=== PATIENT | male | born 1950 | race Caucasian/White ===

== ENCOUNTER 2020-05-05 09:18 | Outpatient (CLI) | payer MEDICARE, SELFPAY ==
--- NOTE | ~2020-05-05 | CT_ITS ---
EXAMINATION: CT abdomen pelvis w con DATE: 05/05/2020 10:02 INDICATION: Prostate cancer TECHNIQUE: Computed tomography (CT) of the abdomen and pelvis was performed with 100 mL Omnipaque-350 intravenous contrast. Automated exposure control and iterative reconstruction technique were employe d. The dose-length product was 845.09 mGy-cm. COMPARISON: CT dated 04/19/2018 and MRI dated 05/01/2018 FINDINGS: Pneumatocele in the left lower lobe. Heart size is normal. Atherosclerotic coronary artery calcified calcification. No pericardial or pleural effusion. No significant interval change in 5 subtle poorly defined 1-2 cm enhancing lesions throughout the liver with no evident correlate on intervening pain p ost contrast MRI or PET/CT most likely representing transient hyperattenuation difference. Gallblad[place] r, spleen, pancreas and bilateral adrenal glands are normal. There are a few lateral low-attenuation renal cysts the largest measuring 4.8 cm peripheral the right kidney and the largest on the left brian uring 5 mm. There is an additional 1.4 cm lesion at the lower pole of the right kidney which demonstr ates greater than simple fluid attenuation Proteinaceous/hemorrhagic cyst. Severe right hydroureteron ephrosis resulting from at least partially obstructing 5 mm stone at the right ureterovesicular junct ion but without a delayed right nephrogram. Bladder is normal. Likely brachytherapy seeds at the pros mckeon. There are few scattered colonic diverticula without adjacent inflammatory change to suggest div erticulitis. Small bowel and appendix are normal. No free intraperitoneal gas or fluid. No pathologic ally enlarged abdominal or pelvic lymphadenopathy. Mild lumbar dextroscoliosis with severe spondylosi s. No suspicious lytic or blastic bone lesions. IMPRESSION: 1. Severe right hydroureteronephrosis secondary to 5 mm at least partially obstructing distal right ureteral stone but without delayed nephrogram. 2. No evident metastatic disease. Reviewed, dictated and finalized at location A. IMPRESSION: 1. Severe right hydroureteronephrosis secondary to 5 mm at least partially obs tructing distal right ureteral stone but without delayed nephrogram. 2. No evident metastatic disease.
--- NOTE | ~2020-05-05 | NM_ITS ---
EXAMINATION: NM bone scan whole body DATE: 05/05/2020 13:05 INDICATION: Prostate cancer TECHNIQUE: 22.9 mCi Tc-99m HDP was administered intravenously. Delayed whole-body scintigrams were o btained. COMPARISON: CT dated 05/05/2020 FINDINGS: There is prominent right hydroureteronephrosis which on CT appears to result from an obstructing 5 mm stone at the right ureterovesicular junction. No suspicious foci of abnormal bone uptake. Mild thora columbar levoscoliosis. IMPRESSION: 1. No evident metastatic disease. 2. Right hydroureteronephrosis with obstructing 5 mm stone at the left ureterovesicular junction on i mmediately prior CT. Reviewed, dictated and finalized at location A. IMPRESSION: 1. No evident metastatic disease. 2. Right hydroureteronephrosis with obstructing 5 mm stone at the left ureterov esicular junction on immediately prior CT.
[2020-05-05 09:56] LABS: Estimated Glomerular Filt Rate > 60
== END 2020-05-05 09:19 | disposition home or self-care (01) ==
LOC: ANHIMG 09:29
PROVIDERS: PCP Physician Assistant Medical; Visit Provider Urology
DX: C61 Malignant neoplasm of prostate (principal); N13.2 Hydronephrosis with renal and ureteral calculous obstruction
CPT/HCPCS: 74177; 78306; A9561; Q9967

== ENCOUNTER 2020-05-12 10:57 | Outpatient (CLI) | payer MEDICARE, SELFPAY ==
--- NOTE | ~2020-05-12 | XR_ITS ---
XR abdomen/kub 1V 05/12/2020 11:26 Indication: Right ureteral stone Procedure: KUB Comparison: CT dated 05/05/2020 Findings: 5 mm distal right ureteral stone without significant change to position. Bowel gas pattern nonobstructive. Moderate colonic fecal loading. Moderate spondylosis of the lumbar spine with dextroc urvature. Impression: 1: Stable position to 5 mm distal right ureteral stone. Reviewed, dictated and finalized at location A. Impression: 1: Stable position to 5 mm distal right ureteral stone.
== END 2020-05-12 10:58 | disposition home or self-care (01) ==
PROVIDERS: PCP Physician Assistant Medical; Visit Provider Urology
DX: N20.1 Calculus of ureter (principal)
CPT/HCPCS: 74018

== ENCOUNTER 2020-05-23 10:03 | Outpatient (CLI) | payer MEDICARE, SELFPAY ==
--- NOTE | 2020-05-23 10:07 | ECG_ITS ---
Measurements Intervals [place] Rate: 82 P: 58 MS: 162 QRS: 55 QRSD: 83 T: 31 QT: 351 QTc: 412 Interpretive Statements SINUS RHYTHM NORMAL ECG Electronically Signed On 05-23-2020 10:35:39 CDT by Luis Armando Eng D.O.
== END 2020-05-23 10:04 | disposition home or self-care (01) ==
LOC: ANHSURGERY 10:07
PROVIDERS: PCP Physician Assistant Medical; Visit Provider Urology
DX: N20.0 Calculus of kidney (principal); Z87.891 Personal history of nicotine dependence
CPT/HCPCS: 87086; 93005

== ENCOUNTER 2020-05-24 01:15 | Outpatient (CLI) | payer MEDICARE, SELFPAY ==
[2020-05-26 18:12] LABS: SARS-CoV-2 RNA PCR Negative
== END 2020-05-24 01:16 | disposition home or self-care (01) ==
LOC: ANHCOVIDDT 01:16
PROVIDERS: PCP Physician Assistant Medical; Visit Provider Urology
DX: Z01.812 Encounter for preprocedural laboratory examination (principal); Z20.828 Contact with and (suspected) exposure to other viral communicable diseases
CPT/HCPCS: 87635; C9803; U0003

== ENCOUNTER 2020-05-27 00:32 | Day surgery (SDC) | payer MEDICARE, SELFPAY ==
[2020-05-21 08:52] VITALS: BMI 28.3
--- NOTE | ~2020-05-27 | XR_ITS ---
EXAMINATION: XR retrograde pyelogram RT INDICATION: Right ureteral stone TECHNIQUE: Seven intraoperative fluoroscopic images are submitted for review. Total fluoroscopic time is 24.6 seconds. The DAP is 0.90316 mGym2. COMPARISON: None available FINDINGS: Fluoroscopic images demonstrate retrograde opacification of the mildly dilated right ureter . Final images demonstrate a right internal ureteral stent in expected position. Please refer to surg ical note for full details. IMPRESSION: 1. Mild right hydroureter with placement of an internal ureteral stent in expected position. Please r efer to surgical note for full details. Reviewed, dictated and finalized at location A. IMPRESSION: 1. Mild right hydroureter with placement of an internal ureteral stent in expec dolores position. Please refer to surgical note for full details.
--- NOTE | 2020-05-27 08:20 | WPDANESEPPF ---
Anes - Initial Pre Proc Eval Procedure: Operation Date: 05/27/20 14:00 Proposed Procedures p Cystoscopy, Right Ureteroscopy, Right Retrograde Pyelogram, Right Stone Extraction, Possible Right Stent Placement, - Bill Marsh MD s Possible Holmium Laser Procedure - Bill Marsh MD Date/Time: 05/27/20 08:20 Surgeon: Bill Marsh MD Pre Op Diagnosis: right renal stone Patient Data Age: 69 Gender: M Height: 1.88 m Weight: 100 kg Allergies Allergy/AdvReac Type Severity Reaction Status Date / Time soybean AdvReac Gastrointestinal Verified 05/27/20 12:33 Upset EGG WHITES AdvReac Gastrointestinal Uncoded 05/27/20 12:33 Upset Home Medications Medication Instructions Recorded Confirmed Type krgep-t-tlvgslecqltxp [Beano] 150 unit PO TID PRN 05/21/20 05/27/20 History ascorbic acid (vitamin C) [Vitamin 1 g PO DAILY 05/21/20 05/27/20 History C] cholecalciferol (vitamin D3) 25 mcg PO DAILY 05/21/20 05/27/20 History cyanocobalamin (vitamin B-12) 1,000 mcg PO DAILY 05/21/20 05/27/20 History zclelgdqfckb-cwbehbma-fllpsd 1 tablet PO DAILY 05/21/20 05/27/20 History [Multivitamin 50 Plus] omega 4-rlr-rrm-fish oil [Fish Oil] 1 cap PO DAILY 05/21/20 05/27/20 History tamsulosin 0.4 mg PO DAILY 05/21/20 05/27/20 History vit B1 [id number]-C-FA [B 1 tablet PO DAILY 05/21/20 05/27/20 History Complex w-Vit C] Patient hx anesthesia problems: none Family hx anesthesia problems: none PMFSH Past Medical History Medical History (Updated 05/27/20 @ 08:20 by Pierre Lind DO) Diabetes type 2, controlled diet controlled History of hepatitis History of prostate cancer Social History Social History Tobacco type: cigarettes Additional smoking assessment comments: 1/2PK/DAY/50+ YRS Alcohol intake: never Substance use: never Living arrangements: alone Spiritual care concerns: No Anes - Eval Final PreProcedure Day of Procedure 05/27/20 08:20 Patient weight: overweight Heart: regular rate and rhythm Lungs: clear to auscultation and normal air movement Airway: Mallampati scale class II Neurological: alert and oriented Last oral intake: >/= 8 hours ASA classification: III Emergent: no Anesthetic plan: proceed Anesthesia type and monitoring: general LMA and standard monitoring Informed Consent: The patient's anesthetic plan and its attendant risks and benefits were discussed with the patient/family/POA. Questions were solicited and answers provided to the satisfaction of the patient/family/POA.
[2020-05-27] MEDS: LACTATED RINGERS 1,000 ML 30 ML IV CONT (12:06)
[2020-05-27 12:37] VITALS: BP 138/74; PULSE 82; RESP 20; TEMP 36.4; O2SAT 99
--- NOTE | 2020-05-27 14:01 | WPDHPUPDATE1 ---
History and Physical Update Update Date/Time: 05/27/20 14:01 History and Physical has been reviewed, including an updated exam of the patient. There are NO changes in the patient's condition. Risks, benefits, and alternatives have been discussed and questions answered. Patient agrees to proceed with procedure.
[2020-05-27] MEDS: ceFAZolin 2 GM/D5W 50 ML 2 GM/50 ML BAG IVPB (15:08)
[2020-05-27] MEDS: LIDOCAINE HCL 2% GEL UROJET 10 ML PKG MUCOUS MEM (15:41)
--- NOTE | 2020-05-27 15:44 | PM.PROC ---
Procedure Note - Detailed Date of procedure: 05/27/20 Pre-op diagnosis: right renal stone Right ureteral calculus 7 mm Post-op diagnosis: same Procedure performed: Cystoscopy, right retrograde pyelogram, right ureteroscopy with holmium laser, stone extraction, right ureteral stent placement 4.8 Beninese contour Description of procedure: Patient is taken to the operative suite and correctly identified. Once anesthesia was obtained he was placed in the dorsal lithotomy position and prepped and draped usual sterile fashion. Twenty-two Beninese scope was inserted in the bladder. There is no tumors noted. Right ureteral orifice was cannulated with a guidewire. An 8/10 dilator was used to dilate the orifice. Rigid ureteral scope was inserted into the orifice. The stone was too large to retrieve in 1 piece. Using a 273 micron fiber the stone was lasered into multiple pieces. These were retrieved were sent for analysis. Reinspection revealed no residual stones. Pyelogram was then performed to confirm placement of the stent. A 4.8 Beninese contour stent was then placed with the proximal end coiled in the renal pelvis and the distal in the bladder. 2% viscous lidocaine was inserted urethra patient is taken recovery room stable condition. He will follow up in a week's time for stent removal. Anesthesia: GLMA Surgeon: Bill Marsh MD Drains: Yes Packing: No Pathology: yes Complications: No immediate complications Condition: stable Disposition: PACU
[2020-05-27 15:50] VITALS: BP 121/73; PULSE 74; RESP 9; TEMP 36.2; O2SAT 100
[2020-05-27 16:05] VITALS: BP 112/62; PULSE 74; RESP 14; O2SAT 100
[2020-05-27 16:20] VITALS: BP 120/72; PULSE 70; RESP 17; O2SAT 97
[2020-05-27 16:35] VITALS: BP 115/61; PULSE 71; RESP 16
[2020-05-27 17:03] VITALS: BP 133/77; PULSE 75; RESP 20
== END 2020-05-27 17:30 | disposition home or self-care (01) ==
PROVIDERS: PCP Physician Assistant Medical; Visit Provider Urology
PROC: (CPT 52352; principal; 2020-05-27 14:00)
PROC: (CPT 52356; 2020-05-27 14:00)
DX: N13.2 Hydronephrosis with renal and ureteral calculous obstruction (principal); E11.9 Type 2 diabetes mellitus without complications; Z86.19 Personal history of other infectious and parasitic diseases; Z85.46 Personal history of malignant neoplasm of prostate; F17.210 Nicotine dependence, cigarettes, uncomplicated
CPT/HCPCS: 52356; 74420; 82365; 88300; A9270; C1769; C2617; J0690; J1100; J2250; J2405; J2704; J3010; J7120; Q9966

== ENCOUNTER 2021-12-25 08:52 | Outpatient (CLI) | payer MEDICARE, SELFPAY ==
--- NOTE | ~2021-12-25 | CT_ITS ---
EXAMINATION: CT diagnostic chest w con DATE: 12/25/2021 09:29 INDICATION: Lung mass, history of prostate cancer TECHNIQUE: Transaxial computed tomographic images of the chest were obtained after the administration of 75 cc of Omnipaque 350 intravenous contrast. The dose-length product (DLP) was 257.91 mGy-cm. Ite rative reconstruction was used. COMPARISON: 05/16/2018 FINDINGS: There is mild emphysema. There is a 4.2 x 3.0 cm mass in the right upper lobe. The lungs ar e free of acute opacities. There is no pleural effusion or pneumothorax. No pathologically enlarged t horacic lymph nodes are identified. The heart size is normal. There is mild bilateral gynecomastia. C alcified coronary artery atherosclerosis is noted. There are subtle enhancing masses of the right hep atic lobe which measure up to 2.7 cm. There is moderate to severe partially imaged left hydronephrosi s. There is a 4.1 cm cyst of the right kidney. IMPRESSION: 1. 4.2 cm right upper lobe mass, consistent with primary bronchogenic carcinoma. 2. Subtle enhancing masses of the liver, likely metastatic disease. 3. Mild emphysema. Reviewed, dictated and finalized at location B. IMPRESSION: 1. 4.2 cm right upper lobe mass, consistent with primary bronchogenic carcinoma . 2. Subtle enhancing masses of the liver, likely metastatic disease. 3. Mild emphysema.
--- NOTE | ~2021-12-25 | NM_ITS ---
EXAMINATION: ASHLEY jiménez renal scan DATE: 12/25/2021 10:53 INDICATION: Left hydronephrosis TECHNIQUE: 8.4 mCi Tc-99m MAG3 was administered IV. 40 mg furosemide was administered IV immediately afterward. The patient was scanned in the supine position. A posterior abdominal radionuclide angiog meryl was obtained. A subsequent time course of static images of the kidneys, ureters, and bladder was obtained. COMPARISON: CT chest dated 12/25/2021 at 9:19 AM FINDINGS: The posterior abdominal radionuclide angiogram and sequential static images show normal size, positio n, and morphology of the kidneys. Peak renal parenchymal uptake was 5.5 min in right kidney and indet erminate in the left kidney with essentially no uptake in the left kidney beyond the first passage of the activity bolus (normal peak 3-5 minutes). The relative early renal uptake was 17% on the left a nd 83% on the right (<40% is abnormal). No abnormalities of the ureters or bladder are seen. T1/2 for clearance of activity from the right kidney and proximal collecting system was >25 minutes. T1/2 for clearance of activity from the left kidney and proximal collecting system is indeterminate d ue to the markedly poor activity uptake by the kidney with no discernible excreted activity. Notes on interpretation: T1/2 <10 minutes is normal, 10-15 minutes is low grade obstruction of questi onable clinical significance, 15-20 minutes is partial obstruction that is likely clinically signific ant, >20 minutes is high grade obstruction. Note that false positives may be seen with supine positio cleo, dehydration, severely dilated nonobstructed kidney, atonic collecting system, poor renal functi on, and chronic furosemide use. IMPRESSION: 1. Significant delayed activity clearance from the right kidney of >25 minutes which could be consis tent with a high-grade obstruction with additional differential as detailed above. There does not krupa ear to be significant hydronephrosis in the right kidney on the CT performed immediately prior to the current scintigraphic study which suggests this is likely due to poor renal function. This could pot entially be transient nephropathy related to the immediately prior contrast bolus. Correlate with fol low-up serum creatinine levels to assess for ongoing renal function. 2. Markedly asymmetric decreased left renal activity with essentially no uptake beyond the level of t he first passage of the extruded bolus with left kidney contributing only 17% to total early renal up take and with no evident accumulation of excreted activity at the left renal pelvis. This could be du e to high-grade obstruction although there could also be contribution due to nonspecific nephropathy of similar etiology as in the contralateral right kidney. Reviewed, dictated and finalized at location A. IMPRESSION: 1. Significant delayed activity clearance from the right kidney of >25 minutes which could be consistent with a high-grade obstruction with additional differ ential as detailed above. There does not appear to be significant hydronephrosi s in the right kidney on the CT performed immediately prior to the current scin tigraphic study which suggests this is likely due to poor renal function. This could potentially be transient nephropathy related to the immediately prior con trast bolus. Correlate with follow-up serum creatinine levels to assess for ben oing renal function. 2. Markedly asymmetric decreased left renal activity with essentially no uptake beyond the level of the first passage of the extruded bolus with left kidney c ontributing only 17% to total early renal uptake and with no evident accumulati on of excreted activity at the left renal pelvis. This could be due to high-gra de obstruction although there could
[2021-12-25 09:19] LABS: Estimated Glomerular Filt Rate 46
== END 2021-12-25 08:53 | disposition home or self-care (01) ==
PROVIDERS: PCP Physician Assistant Medical; Visit Provider Urology
DX: R91.8 Other nonspecific abnormal finding of lung field (principal); R16.0 Hepatomegaly, not elsewhere classified; J43.9 Emphysema, unspecified; R93.422 Abnormal radiologic findings on diagnostic imaging of left kidney; R93.421 Abnormal radiologic findings on diagnostic imaging of right kidney
CPT/HCPCS: 71260; 78708; A9562; J1940; Q9967

== ENCOUNTER 2022-01-06 11:25 | Outpatient (CLI) | payer MEDICARE, SELFPAY ==
--- NOTE | 2022-01-06 11:32 | ECG_ITS ---
Measurements Intervals [place] Rate: 74 P: 68 FL: 154 QRS: 70 QRSD: 86 T: 58 QT: 361 QTc: 402 Interpretive Statements SINUS RHYTHM BASELINE ARTIFACT- I, II, III, AVR, AVL, AVF NORMAL ECG Electronically Signed On 01-06-2022 12:09:40 CDT by Luis Armando Eng D.O.
[2022-01-06 12:18] LABS: Anion Gap 7 mmol/L (8-16); Blood Urea Nitrogen 43 mg/dL (9-20); Carbon Dioxide 30 mmol/L (22-30); Chloride 99 mmol/L (98-107); Estimated Glomerular Filt Rate 43; Glucose 98 mg/dL (65-110); Sodium 136 mmol/L (137-145)
[2022-01-06 12:20] LABS: INR 1.1; Partial Thromboplastin Time 33.1 SECONDS (22.3-36.8); Prothrombin Time 13.5 Seconds (11.1-14.7)
== END 2022-01-06 11:26 | disposition home or self-care (01) ==
PROVIDERS: Anesthesiology; PCP Physician Assistant Medical; Visit Provider Urology
DX: Z01.818 Encounter for other preprocedural examination (principal); F17.210 Nicotine dependence, cigarettes, uncomplicated; N28.9 Disorder of kidney and ureter, unspecified; Z51.81 Encounter for therapeutic drug level monitoring; Z79.899 Other long term (current) drug therapy
CPT/HCPCS: 36415; 80048; 85610; 85730; 87086; 87147; 87181; 87186; 93005

== ENCOUNTER 2022-01-12 00:03 | Day surgery (SDC) | payer MEDICARE, SELFPAY ==
[2022-01-05 14:36] VITALS: BMI 23.3
--- NOTE | 2022-01-05 15:18 | PC.NURSE ---
Report to the Outpatient Waiting Room, entrance under the green pavilion located off [facility], at time __7:30AM on date __01/12/22 . OR Time: __9:30AM . - You and your visitor will be asked a series of questions to screen for COVID 19 for your protection. - Only one visitor is allowed at this time. - The patient visitor is requested to leave or wait in car when not with patient. - A mask is required within the hospital. Patients may have clear liquids (water, carbonated beverages, clear teas, apple juice) until 3 hours prior to surgery with a maximum of 20 ounces. - No food from midnight until time of surgery - Infants may have breast milk until 4 hours before surgery, formula 6 hours prior to surgery. - Children will be allowed to drink immediately following surgery. If applicable, please bring a bottle or sippy cup to assist with drinking. Juice, water, soda, and popsicles are readily available. For infants on formula, please bring formula the day of surgery. Pacifiers are allowed. Take the following medications with a SIP of water the morning of surgery: NONE Medications to discontinue per physician _HOLD ALL VITAMINS/SUPPLEMENTS 3 DAYS PRE-OP Date to take last dose____01/08/22 Please no make-up, nail belgian, hairspray, perfume, deodorant, or body powder the day of surgery. No jewelry (including any body piercings) or valuables the day of surgery, leave them at home. Please take a shower or bath the night before, or the morning of, surgery with an antibacterial soap. Wear comfortable, loose fitting clothing. Children are encouraged to wear pajamas. - Jewelry must be removed prior to entering the operating room. Rings and piercings that are not removed may be cut off. - The hospital will not accept responsibility for valuables. - Please leave all valuables, including medications, at home the day of surgery. If you are going home after surgery, a licensed otr truck driver must drive you home. - NO public transportation without another adult. - We recommend that an adult stay with you for 24 hours following discharge. - We also recommend that you do not drive, make important decision, drink alcoholic beverages, or take any drugs that were not prescribed by your health care provider for at least 24 hours after your discharge time. For Pediatric surgeries, we recommend two adults accompany the child home (only one inside the building at this time). Follow any additional instructions given to you from your surgeon. If you or anyone in your household have experienced Covid symptoms in the past week, please notify your surgeon or the nurse liaison at the phone number below for possible testing. Telephone instructions given to ___PATIENT and asked if any additional questions and then verbalized understanding. Patient advised to call surgeon office or pre surgery nurse liaison [phone] if any additional questions.
[2022-01-12] VITALS (7 sets, daily range): BP systolic 94–128; BP diastolic 55–76; PULSE 72–86; RESP 12–18; TEMP 36.2–36.6; O2SAT 98–100
--- NOTE | ~2022-01-12 | XR_ITS ---
EXAMINATION: XR retrograde pyelo w/stent LT DATE: 01/12/2022 11:40 INDICATION: Prostate cancer TECHNIQUE: 9 fluoroscopic images of the abdomen and pelvis were obtained during procedure performed b monica Marsh. Radiologist was not present for the imaging or procedure. The amount of fluoroscopy t florentino used during this procedure was 0.5 minutes. COMPARISON: 05/05/2020 FINDINGS: Bereavement Program Coordinator image demonstrates normal bowel gas pattern, mild lumbar dextrocurvature with severe spondylosi s. Subsequent images demonstrate cannulation and retrograde contrast injections into the left ureter. There is severe left hydronephrosis and proximal left hydroureter with transition point in the mid l eft ureter. No evident lucent filling defect to suggest obstructing stone or urothelial irregularity. Final images demonstrate placement of a left internal ureteral stent with loops formed at the left r enal pelvis and in the bladder. IMPRESSION: 1. Severe left hydronephrosis with transition point at the proximal to mid left ureter without eviden t obstructing stone or urothelial irregularity to suggest malignant stricture in this could be relate d to extrinsic compression such as in the setting of left retroperitoneal lymphadenopathy. 2. Left internal ureteral stent placement which is in expected position. Reviewed, dictated and finalized at location B. IMPRESSION: 1. Severe left hydronephrosis with transition point at the proximal to mid left ureter without evident obstructing stone or urothelial irregularity to suggest malignant stricture in this could be related to extrinsic compression such as in the setting of left retroperitoneal lymphadenopathy. 2. Left internal ureteral stent placement which is in expected position.
--- NOTE | 2022-01-12 07:41 | WPDANESEPPF ---
Anes - Initial Pre Proc Eval Procedure: Operation Date: 01/12/22 09:30 Proposed Procedures p Cystoscopy, Left Retrograde Pyelogram, Left Ureteral Stent Placement, Possible Ureteroscopy - Bill Marsh MD Date/Time: 01/12/22 07:41 Surgeon: Bill Marsh MD Pre Op Diagnosis: Prostate Ca Patient Data Age: 71 Gender: M Height: 1.83 m Weight: 80 kg Allergies Allergy/AdvReac Type Severity Reaction Status Date / Time soybean AdvReac Mild Gastrointestinal Verified 01/12/22 07:28 Upset EGG WHITES AdvReac Mild Gastrointestinal Uncoded 01/12/22 07:28 Upset Home Medications Medication Instructions Recorded Confirmed Type ascorbic acid (vitamin C) 1,000 mg 1 g PO DAILY 05/21/20 01/12/22 History tablet (Vitamin C) cholecalciferol (vitamin D3) 25 25 mcg PO DAILY 05/21/20 01/12/22 History mcg (1,000 unit) tablet cyanocobalamin (vitamin B-12) 1,000 mcg PO DAILY 05/21/20 01/12/22 History 1,000 mcg capsule [id number] 1 tablet PO DAILY 05/21/20 01/12/22 History 18 mg-10 mg-45 mg-5 mg-250 mg tablet (B Complex w-Vit C) enzalutamide 40 mg capsule (Xtandi) 160 mg PO DAILY 01/05/22 01/12/22 History omega-3 fatty acids-vitamin E 1 cap PO DAILY 01/05/22 01/12/22 History 1,000 mg capsule zinc 50 mg tablet 50 mg PO DAILY 01/05/22 01/12/22 History nitrofurantoin 100 mg PO DAILY 01/12/22 01/12/22 History monohydrate/macrocrystals 100 mg capsule Patient hx anesthesia problems: none Family hx anesthesia problems: none Results Review: All pre-operative results and documents have been reviewed as part of the pre-operative evaluation. [facility] Past Medical History Medical History (Updated 01/12/22 @ 07:42 by Pierre Lind DO) COPD (chronic obstructive pulmonary disease) Diabetes type 2, controlled diet controlled History of hepatitis History of prostate cancer Renal dysfunction partially functioning left kidney Social History Social History Smoking packs per day: 2 Smoking cigarettes per day: 40.0 Years smoked: 51 Smoking pack-years: 102.00 Smoking status: Current every day smoker Tobacco type: cigarettes Additional smoking assessment comments: 1/2 PACK/DAY CURRENTLY Alcohol intake: never Alcohol use 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: 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 [employer]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 Informed Consent: The patient's anesthetic plan and its attendant risks and benefits were discussed with the patient/family/POA. Questions were solicited and answers provided to the satisfaction of the patient/family/POA.
[2022-01-12] MEDS: LACTATED RINGERS 1,000 ML 30 ML IV CONT (07:48)
--- NOTE | 2022-01-12 08:27 | WPDHPUPDATE1 ---
History and Physical Update Update Date/Time: 01/12/22 08:27 History and Physical has been reviewed, including an updated exam of the patient. There are NO changes in the patient's condition. Risks, benefits, and alternatives have been discussed and questions answered. Patient agrees to proceed with procedure. Proceed with cystoscopy, left retrograde pyelogram, left stent placement, possible ureteroscopy
--- NOTE | 2022-01-12 09:53 | SUR.PREOP ---
pt informed delay in procedure.
[2022-01-12] MEDS: ceFAZolin 2 GM/D5W 50 ML 2 GM/50 ML BAG IVPB (11:08)
[2022-01-12] MEDS: LIDOCAINE HCL 2% GEL UROJET 10 ML PKG MUCOUS MEM (11:34)
[2022-01-12] MEDS: BACITRACIN OINTMENT 15 GM TUBE 1 APPLIC TOPICAL (11:37)
--- NOTE | 2022-01-12 11:40 | W.PM.PROC2 ---
Procedure Note - Detailed Date of Procedure 01/12/22 Pre-op Diagnosis Prostate Ca, left hydronephrosis Post-op Diagnosis Same Procedure Performed Cystoscopy, left retrograde pyelogram, left ureteral stent placement 6 Macedonian contour stent Surgeon Bill Marsh MD Anesthesia General Findings Tortuous proximal ureter with extrinsic compression Description of Procedure Patient is taken to the operative suite correctly identified. Once anesthesia was obtained was placed in dorsal lithotomy position and prepped and draped usual sterile fashion. Nineteen Macedonian scope inserted the bladder direct vision. There was no tumors noted. Left ureteral orifice was cannulated with a guidewire. It met resistance in the proximal ureter. We thus inserted a [place] over the wire and did a pyelogram. Contrast made its way into the kidney but the apparently was tortuous more proximally. We were able to manipulate an angled guidewire up into the kidney. We then advanced the [place] catheter in the renal pelvis which straightened out the ureter. A 6 Macedonian contour stent was then placed with the proximal end coiled in the renal pelvis and the distal in the bladder. 2% viscous lidocaine was inserted urethra. Was also then noted that his foreskin was adhered to his glans with some exudate catheter underneath. Using a hemostat we then gently the foreskin from the glans. We removed all the exudate. Antibiotic ointment was then placed on the foreskin. Patient is taken recovery stable condition. He will be discharged home. Will plan on stent exchange with possible ureteroscopy in 3 months time. Drains Yes Packing No Pathology None sent Complications No immediate complications Condition Stable Disposition PACU
--- NOTE | 2022-01-13 07:36 | WPDANESPN ---
Anes - Prog Note Post-Op Date/Time: 01/13/22 07:36 Cardiovascular status: normal Respiratory status: normal Airway patency: baseline Mental status: baseline Post-Op hydration status: normal Vital Signs: Last Vital Signs Temp 98 F 01/12/22 11:50 Pulse 79 01/12/22 13:15 Resp 16 01/12/22 13:15 BP 115/56 L 01/12/22 13:15 Pulse Ox 98 01/12/22 12:20 O2 Del Method Room Air 01/12/22 13:15 O2 Flow Rate 8 01/12/22 11:50 Pain Score (VAS): 08/31 I/O: Intake & Output 01/12/22 01/12/22 01/13/22 15:59 23:59 07:59 Intake Total 1050 Output Total 350 Balance 700 Patient Feedback: Patient satisfied with anesthetic care.
== END 2022-01-12 13:34 | disposition home or self-care (01) ==
PROVIDERS: PCP Physician Assistant Medical; Visit Provider Urology
PROC: (CPT 52352; principal; 2022-01-12 09:30)
DX: N13.30 Unspecified hydronephrosis (principal); N28.9 Disorder of kidney and ureter, unspecified; Z85.46 Personal history of malignant neoplasm of prostate; J44.9 Chronic obstructive pulmonary disease, unspecified; E11.9 Type 2 diabetes mellitus without complications; Z86.19 Personal history of other infectious and parasitic diseases; F17.210 Nicotine dependence, cigarettes, uncomplicated
CPT/HCPCS: 52332; 36415; 74420; 80048; 85610; 85730; 87086; 87147; 87181; 87186; 93005; A9270; C1758; C1769; C2617; J0690; J1100; J2370; J2405; J2704; J3010; J7120; Q9966

== ENCOUNTER 2022-04-01 09:18 | Outpatient (CLI) | payer MEDICARE, SELFPAY | END 2022-04-01 09:19 | disposition home or self-care (01) | LOC: ANHSURGERY 09:21 | PROVIDERS: PCP Physician Assistant Medical; Visit Provider Urology | DX: Z01.818 Encounter for other preprocedural examination (principal); N13.30 Unspecified hydronephrosis | CPT/HCPCS: 87086 ==

== ENCOUNTER 2022-04-06 00:18 | Day surgery (SDC) | payer MEDICARE, SELFPAY ==
--- NOTE | 2022-03-31 15:38 | PC.NURSE ---
Report to the Outpatient Waiting Room, entrance under the green pavilion located off [facility], at time _1130 on date __04/06/22 . OR Time: ___1330 . - You and your visitor will be asked a series of questions to screen for COVID 19 for your protection. - Only one visitor is allowed at this time. - The patient visitor is requested to leave or wait in car when not with patient. - A mask is required within the hospital. Patients may have clear liquids (water, carbonated beverages, clear teas, apple juice) until 3 hours prior to surgery with a maximum of 20 ounces. - No food from midnight until time of surgery - Infants may have breast milk until 4 hours before surgery, infant formula 6 hours prior to surgery. - Children will be allowed to drink immediately following surgery. If applicable, please bring a bottle or sippy cup to assist with drinking. Juice, water, soda, and popsicles are readily available. For infants on formula, please bring formula the day of surgery. Pacifiers are allowed. Take the following medications with a SIP of water the morning of surgery: TRELEGY INHALER Medications to discontinue per physician ALL VITAMINS AND SUPPLEMENTS 3 DAY Date to take last dose_04/02/22 Please no make-up, nail hungarian, hairspray, perfume, deodorant, or body powder the day of surgery. No jewelry (including any body piercings) or valuables the day of surgery, leave them at home. Please take a shower or bath the night before, or the morning of, surgery with an antibacterial soap. Wear comfortable, loose fitting clothing. Children are encouraged to wear pajamas. - Jewelry must be removed prior to entering the operating room. Rings and piercings that are not removed may be cut off. - The hospital will not accept responsibility for valuables. - Please leave all valuables, including medications, at home the day of surgery. If you are going home after surgery, a licensed truck driver salesperson must drive you home. - NO public transportation without another adult. - We recommend that an adult stay with you for 24 hours following discharge. - We also recommend that you do not drive, make important decision, drink alcoholic beverages, or take any drugs that were not prescribed by your health care provider for at least 24 hours after your discharge time. For Pediatric surgeries, we recommend two adults accompany the child home (only one inside the building at this time). Follow any additional instructions given to you from your surgeon. If you or anyone in your household have experienced Covid symptoms in the past week, please notify your surgeon or the nurse liaison at the phone number below for possible testing. Telephone instructions given to ___PATIENT and asked if any additional questions and then verbalized understanding. Patient advised to call surgeon office or pre surgery nurse liaison [phone] if any additional questions.
[2022-03-31 15:44] VITALS: BMI 22.8
[2022-04-06] VITALS (7 sets, daily range): BP systolic 88–120; BP diastolic 50–79; PULSE 70–104; RESP 16–20; TEMP 36.1–36.3; O2SAT 100
--- NOTE | ~2022-04-06 | XR_ITS ---
EXAMINATION: XR retrograde pyelo w/stent LT DATE: 04/06/2022 14:09 INDICATION: Left internal ureteral stent placement TECHNIQUE: Fluoroscopic images from a left internal ureteral stent placement are submitted for review . 19 seconds of fluoroscopy time. 3 fluoroscopic images. FINDINGS: There is a left double-J internal ureteral stent projecting in expected position, with proximal [place] loop at the level of the renal pelvis and distal loop in the pelvis within the bladder lumen. IMPRESSION: 1. Left internal ureteral stent placement. Please refer to real-time procedural findings for detail s. Reviewed, dictated and finalized at location B. IMPRESSION: 1. Left internal ureteral stent placement. Please refer to real-time procedur al findings for details.
--- NOTE | 2022-04-06 07:19 | WPDANESEPPF ---
Anes - Initial Pre Proc Eval Procedure: Operation Date: 04/06/22 13:30 Proposed Procedures p Cystoscopy, Left Retrograde Pyelogram, Left Stent Exchange, Possible Left Ureteroscopy - Bill Marsh MD Date/Time: 04/06/22 07:19 Surgeon: Bill Marsh MD Pre Op Diagnosis: Prostate Ca, Hydronephrosis Left Side Patient Data Age: 71 Gender: M Height: 1.83 m Weight: 76.2 kg Allergies Allergy/AdvReac Type Severity Reaction Status Date / Time soybean AdvReac Mild Gastrointestinal Verified 04/06/22 12:15 Upset EGG WHITES AdvReac Mild Gastrointestinal Uncoded 04/06/22 12:15 Upset Home Medications Medication Instructions Recorded Confirmed Type ascorbic acid (vitamin C) 1,000 mg 1 g PO DAILY 05/21/20 04/06/22 History tablet (Vitamin C) cholecalciferol (vitamin D3) 25 25 mcg PO DAILY 05/21/20 04/06/22 History mcg (1,000 unit) tablet cyanocobalamin (vitamin B-12) 1,000 mcg PO DAILY 05/21/20 04/06/22 History 1,000 mcg capsule [id number] 1 tablet PO DAILY 05/21/20 04/06/22 History 18 mg-10 mg-45 mg-5 mg-250 mg tablet (B Complex w-Vit C) enzalutamide 40 mg capsule (Xtandi) 160 mg PO QPM 01/05/22 04/06/22 History omega-3 fatty acids-vitamin E 1 cap PO DAILY 01/05/22 04/06/22 History 1,000 mg capsule zinc 50 mg tablet 50 mg PO DAILY 01/05/22 04/06/22 History fluticasone fur. 100 mcg-umeclid 1 ea inhalation DAILY 03/31/22 04/06/22 History 62.5 mcg-vilant 25 mcg inhalat.powder (Trelegy Ellipta) Patient hx anesthesia problems: none Family hx anesthesia problems: none Results Review: All pre-operative results and documents have been reviewed as part of the pre-operative evaluation. [facility] Past Medical History Medical History (Updated 04/06/22 @ 13:05 by Pierre Lind DO) COPD (chronic obstructive pulmonary disease) Diabetes type 2, controlled diet controlled History of hepatitis History of lung cancer History of prostate cancer Renal dysfunction partially functioning left kidney Social History Social History Smoking packs per day: 2 Smoking cigarettes per day: 40.0 Years smoked: 51 Smoking pack-years: 102.00 Smoking status: Former smoker Tobacco type: cigarettes Smoking end date: 03/21/22 Additional smoking assessment comments: LAST 10 YEARS SMOKED ONE PACK PER DAY Alcohol intake: never Alcohol use details: 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 DRINKER Substance use: never Living arrangements: alone Gender identity (if verbalized by the patient): Male Sexual Orientation (if Verbalized by the Patient): Straight or Heterosexual Spiritual care concerns: No Anes - Eval Final PreProcedure Day of Procedure 04/06/22 07:19 Patient weight: normal Heart: regular rate and rhythm Lungs: clear to auscultation Airway: Mallampati scale class II Neurological: alert and oriented Last oral intake: >/= 8 hours ASA classification: III Emergent: no Anesthetic plan: proceed Anesthesia type and monitoring: general LMA and standard monitoring Results Review: All pre-operative results and documents have been reviewed as part of the pre-operative evaluation. Informed Consent: The patient's anesthetic plan and its attendant risks and benefits were discussed with the patient/family/POA. Questions were solicited and answers provided to the satisfaction of the patient/family/POA.
[2022-04-06] MEDS: LACTATED RINGERS 1,000 ML 30 ML IV CONT (12:06)
--- NOTE | 2022-04-06 13:18 | WPDHPUPDATE1 ---
History and Physical Update Update Date/Time: 04/06/22 13:18 History and Physical has been reviewed, including an updated exam of the patient. There are NO changes in the patient's condition. Risks, benefits, and alternatives have been discussed and questions answered. Patient agrees to proceed with procedure. Proceed with cysto, left retrograde, left stent exchange, possible left ureteroscopy
[2022-04-06] MEDS: ceFAZolin 2 GM/D5W 50 ML 2 GM/50 ML BAG IVPB (13:41)
[2022-04-06] MEDS: LIDOCAINE HCL 2% GEL UROJET 10 ML PKG MUCOUS MEM (14:04)
--- NOTE | 2022-04-06 14:06 | P.OP_ITS ---
Procedure Note - Detailed Date of Procedure 04/06/22 Pre-op Diagnosis Prostate Ca, Hydronephrosis Left Side Post-op Diagnosis Same Procedure Performed Cystoscopy, left retrograde pyelogram, left ureteroscopy, left stent exchange 6 South African contour Surgeon Bill Marsh MD Anesthesia General Findings Extrinsic compression with some tortuosity of proximal ureter Description of Procedure Patient was taken to the operative suite correctly identified. Once anesthesia was obtained was placed in dorsal lithotomy position and prepped and draped usual sterile fashion. Twenty-two South African scope was inserted the bladder. There were no tumors noted. The left orifice with stent was visualized. The stent was grasped brought out the meatus. GradFly guidewire was placed through the stent. Immediate flexible ureteral scope was then inserted the left ureteral orifice. There there was extrinsic compression along the mid to distal ureter. More proximally there appeared to be some tortuosity with almost the appearance of a small diverticulum. I could not manipulate the scope through this area. We decided to terminate the ureteroscopy at this point. We had done a pyelogram to confirm placement of the wire in the renal pelvis. A 6 South African contour stent was then placed with the proximal end coiled in the renal pelvis and the distal in the bladder. Bladder was drained. 2% viscous lidocaine was inserted into the urethra patient is taken recovery stable condition. Will plan on stent exchange in 3-4 months time Drains Yes Packing No Pathology None sent Complications No immediate complications Condition Stable Disposition PACU
[2022-04-06 14:16] LABS: Glucose Point of Care 140 mg/dl (65-105)
== END 2022-04-06 15:58 | disposition home or self-care (01) ==
PROVIDERS: PCP Physician Assistant Medical; Visit Provider Urology
PROC: (CPT 52352; principal; 2022-04-06 13:30)
DX: N13.30 Unspecified hydronephrosis (principal); C61 Malignant neoplasm of prostate; J44.9 Chronic obstructive pulmonary disease, unspecified; E11.9 Type 2 diabetes mellitus without complications; K75.9 Inflammatory liver disease, unspecified; Z85.118 Personal history of other malignant neoplasm of bronchus and lung; Z87.891 Personal history of nicotine dependence
CPT/HCPCS: 52332; 74420; 82948; 87086; A9270; C1758; C1769; C2617; J0690; J1100; J2405; J2704; J7120; Q9966

== ENCOUNTER 2022-05-27 11:08 | Outpatient (CLI) | payer MEDICARE, SELFPAY ==
[2022-05-27 12:17] LABS: Thyroid Stimulating Hormone < 0.015 uIU/mL (0.465-4.680)
[2022-05-27 12:38] LABS: Free T4 Free Thyroxine 2.48 ng/mL (0.78-2.19)
[2022-05-30 05:28] LABS: Triiodothyronine T3 Free 6.4 pg/mL (2.3-4.2)
== END 2022-05-27 11:09 | disposition home or self-care (01) ==
LOC: ANHLAB 11:10
PROVIDERS: PCP Physician Assistant Medical; Visit Provider Internal Medicine Endocrinology, Diabetes & Metabolism
DX: E04.1 Nontoxic single thyroid nodule (principal)
CPT/HCPCS: 36415; 84439; 84443; 84481

== ENCOUNTER 2022-06-11 11:06 | Outpatient (CLI) | payer MEDICARE, SELFPAY ==
[2022-06-11 11:40] LABS: Anion Gap 14 mmol/L (8-16); Blood Urea Nitrogen 33 mg/dL (9-20); Calcium 9.6 mg/dL (8.4-10.2); Carbon Dioxide 27 mmol/L (22-30); Chloride 101 mmol/L (98-107); Estimated Glomerular Filt Rate 54; Glucose 154 mg/dL (65-110); Potassium 4.6 mmol/L (3.4-5.0); Sodium 142 mmol/L (137-145)
[2022-06-11 11:42] LABS: INR 1.1; Prothrombin Time 13.4 Seconds (11.1-14.7)
[2022-06-11 11:43] LABS: Partial Thromboplastin Time 32.6 SECONDS (22.3-36.8)
== END 2022-06-11 11:07 | disposition home or self-care (01) ==
LOC: ANHSURGERY 11:11
PROVIDERS: Anesthesiology; PCP Physician Assistant Medical; Visit Provider Urology
DX: Z01.818 Encounter for other preprocedural examination (principal); N28.9 Disorder of kidney and ureter, unspecified; C61 Malignant neoplasm of prostate
CPT/HCPCS: 36415; 80048; 85610; 85730; 87086

== ENCOUNTER 2022-06-22 01:36 | Day surgery (SDC) | payer MEDICARE, SELFPAY ==
[2022-06-10 11:01] VITALS: BMI 22.4
--- NOTE | 2022-06-10 11:04 | PC.NURSE ---
PRE-OP INSTRUCTIONS, PLEASE READ CAREFULLY Report to the Outpatient Waiting Room, entrance under the green pavilion located off [facility], at time _0630_ on date _06/22/22_. Planned Procedure Time: _0830_. Time changes happen often and if your time is changed the preop area will call you the afternoon before. - You and your visitor will be asked to self-screen and do not enter if you have any COVID symptoms. - We encourage only one visitor and NO visitors under age 16 are allowed at this time. Your visitor will receive communication by the phone number that is given day of service. - The patient visitor is requested to social distance or may leave the building when not with patient due to restrictions. - A mask is required within the hospital. Patients may have clear liquids (water, carbonated beverages, clear teas, apple juice) until 3 hours prior to surgery (0530 AM) with a maximum of 20 ounces. - No food from midnight until time of surgery Take the following medications with a SIP of water the morning of surgery: _TRELEGY INHALER_ Medications to discontinue per physician _PT STATES, VITAMINS/SUPPLEMENTS [address] LUCAS'S INSTRUCTIONS_ Date to take last dose_06/14/22_ Please no make-up, nail japanese, hairspray, perfume, deodorant, or body powder the day of surgery. No jewelry (including any body piercings) or valuables the day of surgery, leave them at home. Please take a shower or bath the night before, or the morning of, surgery with an antibacterial soap. Wear comfortable, loose fitting clothing. - Jewelry must be removed prior to entering the operating room. Rings and piercings that are not removed may be cut off. - The hospital will not accept responsibility for valuables. - Please leave all valuables, including medications, at home the day of surgery. If you are going home after surgery, a licensed maintenance truck driver must drive you home. - NO public transportation without another adult. - We recommend that an adult stay with you for 24 hours following discharge. - We also recommend that you do not drive, make important decision, drink alcoholic beverages, or take any drugs that were not prescribed by your health care provider for at least 24 hours after your discharge time. Follow any additional instructions given to you from your surgeon. If you or anyone in your household have experienced Covid symptoms in the past week, please notify your surgeon or the nurse liaison at the phone number below for possible testing. Telephone instructions given to ___PT and asked if any additional questions and then verbalized understanding. Patient advised to call surgeon office or pre surgery nurse liaison [phone] if any additional questions.
[2022-06-22] VITALS (7 sets, daily range): BP systolic 98–150; BP diastolic 58–91; PULSE 83–100; RESP 14–18; TEMP 36.1–37; O2SAT 97–100; BMI 23.4
--- NOTE | ~2022-06-22 | XR_ITS ---
EXAMINATION: XR retrograde pyelo w/stent LT DATE: 06/22/2022 09:58 INDICATION: Left internal ureteral stent exchange. TECHNIQUE: 5 fluoroscopic images of the abdomen and pelvis were obtained during procedure performed paris Marsh. Radiologist was not present for the imaging or procedure. The amount of fluoroscopy t florentino used during this procedure was 0.4 minutes. COMPARISON: 04/06/2022 FINDINGS: Initial antisqueak worker images demonstrate a left intrarenal stent in expected position. Subsequent images demo nstrate removal of the stent and advancement of a wire into the dilated left renal pelvis. Contrast i s been injected into the left renal pelvis which demonstrates severe hydronephrosis. Final images dem onstrate placement of a new left internal ureteral stent with loops formed in the left renal pelvis a nd in the bladder. Suture anchors at the bilateral pubic bodies. IMPRESSION: 1. Persistent severe left hydronephrosis with placement of a new left internal ureteral stent which i s in expected position. Reviewed, dictated and finalized at location B. IMPRESSION: 1. Persistent severe left hydronephrosis with placement of a new left internal ureteral stent which is in expected position.
[2022-06-22] MEDS: LACTATED RINGERS 1,000 ML 30 ML IV CONT (07:00)
--- NOTE | 2022-06-22 07:27 | WPDHPUPDATE1 ---
History and Physical Update Update Date/Time: 06/22/22 07:27 History and Physical has been reviewed, including an updated exam of the patient. There are NO changes in the patient's condition. Risks, benefits, and alternatives have been discussed and questions answered. Patient agrees to proceed with procedure. proceed with cysto, left retrograde, stent exchange , possible ureteroscopy
--- NOTE | 2022-06-22 07:57 | WPDANESEPPF ---
Anes - Initial Pre Proc Eval Procedure: Operation Date: 06/22/22 08:30 Proposed Procedures p Cystoscopy, Left Retrograde Pyelogram,Left Stent Exchange, Possible Left Ureteroscopy - Bill Marsh MD Date/Time: 06/22/22 07:57 Surgeon: Bill Marsh MD Pre Op Diagnosis: prostate cancer Patient Data Age: 71 Gender: M Height: 1.83 m Weight: 78.5 kg Last Vital Signs Temp 36.1 C L 06/22/22 06:25 Pulse 91 06/22/22 06:25 Resp 16 06/22/22 06:25 BP 124/66 06/22/22 06:25 Pulse Ox 100 06/22/22 06:25 O2 Del Method Room Air 06/22/22 06:25 Allergies Allergy/AdvReac Type Severity Reaction Status Date / Time chicken derived Allergy Mild Gastrointestinal Verified 06/22/22 06:51 Upset soybean AdvReac Mild Gastrointestinal Verified 06/22/22 06:51 Upset EGG WHITES AdvReac Mild Gastrointestinal Uncoded 06/22/22 06:51 Upset Home Medications Medication Instructions Recorded Confirmed Type ascorbic acid (vitamin C) 1,000 mg 1 g PO DAILY 05/21/20 06/22/22 History tablet (Vitamin C) cholecalciferol (vitamin D3) 25 25 mcg PO DAILY 05/21/20 06/22/22 History mcg (1,000 unit) tablet cyanocobalamin (vitamin B-12) 1,000 mcg PO DAILY 05/21/20 06/22/22 History 1,000 mcg capsule [id number] 1 tablet PO DAILY 05/21/20 06/22/22 History 18 mg-10 mg-45 mg-5 mg-250 mg tablet (B Complex w-Vit C) omega-3 fatty acids-vitamin E 1 cap PO DAILY 01/05/22 06/22/22 History 1,000 mg capsule zinc 50 mg tablet 50 mg PO DAILY 01/05/22 06/22/22 History fluticasone fur. 100 mcg-umeclid 1 ea inhalation DAILY 03/31/22 06/22/22 History 62.5 mcg-vilant 25 mcg inhalat.powder (Trelegy Ellipta) methimazole 10 mg tablet 10 mg PO DAILY 90 days #90 tabs 06/14/22 06/22/22 Rx Patient hx anesthesia problems: none Family hx anesthesia problems: none Results Review: All pre-operative results and documents have been reviewed as part of the pre-operative evaluation. [facility] Past Medical History Medical History Cataract (lens) fragments in eye following cataract surgery, bilateral COPD (chronic obstructive pulmonary disease) Diabetes type 2, controlled diet controlled Hepatitis History of hepatitis History of lung cancer History of prostate cancer Kidney stone Renal dysfunction partially functioning left kidney Surgical History Surgical History Hx of tonsillectomy Social History Social History Smoking packs per day: 2 Smoking cigarettes per day: 40.0 Years smoked: 51 Smoking pack-years: 102.00 Smoking status: Former smoker Tobacco type: cigarettes Second hand tobacco smoke exposure: No Smoking end date: 03/21/22 Additional smoking assessment comments: STATES 2011 -2021 SMOKED 1PK/DAY Alcohol intake: former Alcohol use details: 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 DRINKER Substance use: never Substance use type: does not use Living arrangements: alone Gender identity (if verbalized by the patient): Male Sexual Orientation (if Verbalized by the Patient): Straight or Heterosexual Spiritual care concerns: No Anes - Eval Final PreProcedure Day of Procedure 06/22/22 07:57 Patient weight: normal Heart: regular rate and rhythm Lungs: decreased breath sounds Airway: Mallampati scale class II Neurological: alert and oriented Last oral intake: >/= 8 hours ASA classification: IV Emergent: no Anesthetic plan: proceed Anesthesia type and monitoring: general LMA and standard monitoring Results Review: All pre-operative results and documents have been reviewed as part of the pre-operative evaluation. Informed Consent: The patient's anesthetic plan and its attendant risks and benefits were discussed with the patient/family/POA. Questions were solicited and answers provided to the s
--- NOTE | 2022-06-22 09:10 | SUR.PREOP ---
0910- Patient verbalized understanding of delay with procedure start time.
[2022-06-22] MEDS: ceFAZolin 2 GM/D5W 50 ML 2 GM/50 ML BAG IVPB (09:16)
[2022-06-22] MEDS: LIDOCAINE HCL 2% GEL UROJET 10 ML PKG MUCOUS MEM (09:36)
--- NOTE | 2022-06-22 09:54 | P.OP_ITS ---
Procedure Note - Detailed Date of Procedure 06/22/22 Pre-op Diagnosis prostate cancer, left hydronephrosis Post-op Diagnosis Same Procedure Performed Cystoscopy, left retrograde pyelogram, left ureteroscopy, left ureteral stent exchange 6 Upper Sorbian contour stent Surgeon Bill Marsh MD Anesthesia General Description of Procedure Patient is taken to the operative suite correctly identified. Once anesthesia was obtained was placed in dorsal lithotomy position and prepped and draped usual sterile fashion. Twenty-two Upper Sorbian scope was inserted into the bladder. There were no tumors noted. The left ureteral stent was grasped and brought to the meatus. A guidewire was inserted through the stent. We then placed a ureteral access sheath in the distal ureter. Mini flexible scope was inserted. The ureter was visualized all the way up to the kidney. Does have somewhat of a redundant UPJ area however this stent was able to pass into the kidney. No tumors noted. Pyelogram was performed confirm placement stent. The ureter was inspected on the weight is out. No discrete tumors were noted. At this point a 6 Upper Sorbian contour stent was placed with proximal end coiled in the renal pelvis and the distal in the bladder. Patient is taken recovery after 2% viscous lidocaine was inserted into urethra. Plan is to see how he does with his prostate cancer treatment to see if his adenopathy decreases. If that is the case we could possibly try and remove his stent in the future. In the meantime will plan on exchange in approximately 6 months time. Drains Yes Packing No Pathology None sent Complications No immediate complications Condition Stable Disposition PACU
== END 2022-06-22 11:30 | disposition home or self-care (01) ==
PROVIDERS: PCP Physician Assistant Medical; Visit Provider Urology
PROC: (CPT 52352; principal; 2022-06-22 08:30)
DX: N13.30 Unspecified hydronephrosis (principal); N28.9 Disorder of kidney and ureter, unspecified; J44.9 Chronic obstructive pulmonary disease, unspecified; E11.9 Type 2 diabetes mellitus without complications; Z85.118 Personal history of other malignant neoplasm of bronchus and lung; Z79.51 Long term (current) use of inhaled steroids; Z87.891 Personal history of nicotine dependence; Z85.46 Personal history of malignant neoplasm of prostate
CPT/HCPCS: 52332; 36415; 74420; 80048; 85610; 85730; 87086; A9270; C1769; C2617; J0690; J1100; J2405; J2704; J3010; J7120

== ENCOUNTER 2022-08-02 09:42 | Outpatient (CLI) | payer MEDICARE, SELFPAY ==
--- NOTE | ~2022-08-02 | NM_ITS ---
EXAMINATION: NM thyroid scan w uptake DATE: 08/03/2022 09:55 INDICATION: Hyperthyroidism COMPARISON: None. TECHNIQUE: 431 microcuries I-123 was administered orally in capsule form. Scintigraphic images of th e thyroid gland were obtained at 24 hours. Thyroid uptake was calculated by the technologist. FINDINGS: The thyroid uptake is 32.4% (normal 10-30%), with the right lobe measuring 16.8% uptake and the left 15.9%. There is no focal area of decreased or increased activity to suggest hypofunctioning or hyperf unctioning nodule. IMPRESSION: 1. Normal thyroid scintigraphy with diffuse mildly elevated 24-hour iodine uptake consistent with Gr aves' disease. Reviewed, dictated and finalized at location A. AIR DIRECTOR IMPRESSION: 1. Normal thyroid scintigraphy with diffuse mildly elevated 24-hour iodine upt ally consistent with Graves' disease.
== END 2022-08-02 09:43 | disposition home or self-care (01) ==
LOC: ANHIMG 09:45
PROVIDERS: PCP Physician Assistant Medical; Visit Provider Internal Medicine Endocrinology, Diabetes & Metabolism
DX: E05.90 Thyrotoxicosis, unspecified without thyrotoxic crisis or storm (principal)
CPT/HCPCS: 78014; A9516

== ENCOUNTER 2022-09-28 15:14 | Outpatient (CLI) | payer MEDICARE, SELFPAY ==
[2022-09-28 16:20] LABS: Thyroid Stimulating Hormone < 0.015 uIU/mL (0.465-4.680)
[2022-09-28 17:41] LABS: Free T4 Free Thyroxine 1.79 ng/mL (0.78-2.19)
[2022-09-30 21:47] LABS: Triiodothyronine T3 Free 4.5 pg/mL (2.3-4.2)
== END 2022-09-28 15:15 | disposition home or self-care (01) ==
PROVIDERS: PCP Physician Assistant Medical; Visit Provider Internal Medicine Endocrinology, Diabetes & Metabolism
DX: E04.9 Nontoxic goiter, unspecified (principal); E05.90 Thyrotoxicosis, unspecified without thyrotoxic crisis or storm
CPT/HCPCS: 36415; 84439; 84443; 84481

== ENCOUNTER 2023-01-14 00:04 | Day surgery (SDC) | payer MEDICARE, SELFPAY ==
--- NOTE | 2023-01-13 13:20 | PC.NURSE ---
Report to the Outpatient Waiting Room, entrance under the green pavilion located off [facility], at time __1030 on date __01/14/23 . Planned Procedure Time: ____1230____. Time changes happen often and if your time is changed the preop area will call you the afternoon before. - You and your visitor will be asked to self-screen and do not enter if you have any COVID symptoms. - A mask is optional within the hospital at this time. Patients may have clear liquids (water, carbonated beverages, clear teas, apple juice) until 3 hours prior to surgery with a maximum of 20 ounces. - No food from midnight until time of surgery - Infants may have breast milk until 4 hours before surgery, infant formula 6 hours prior to surgery. - Children will be allowed to drink immediately following surgery. If applicable, please bring a bottle or sippy cup to assist with drinking. Juice, water, soda, and popsicles are readily available. For infants on formula, please bring formula the day of surgery. Pacifiers are allowed. Take the following medications with a SIP of water the morning of surgery: ____TRELEGY INHALER, AND METHIMAZOLE DO NOT STOP ANY OF YOUR OTHER PRESCRIPTION MEDICATIONS PRIOR TO SURGERY ?EXCEPT THE FOLLOWING Medications to discontinue per physician SURGERY TOMORROW Date to take last dose Please no make-up, nail khmer, hairspray, perfume, deodorant, or body powder the day of surgery. No jewelry (including any body piercings) or valuables the day of surgery, leave them at home. Please take a shower or bath the night before, or the morning of, surgery with an antibacterial soap. Wear comfortable, loose fitting clothing. Children are encouraged to wear pajamas. - Jewelry must be removed prior to entering the operating room. Rings and piercings that are not removed may be cut off. - The hospital will not accept responsibility for valuables. - Please leave all valuables, including medications, at home the day of surgery. If you are going home after surgery, a licensed delivery driver assistant must drive you home. - NO public transportation without another adult if you receive anesthesia. - We recommend that an adult stay with you for 24 hours following discharge. - We also recommend that you do not drive, make important decision, drink alcoholic beverages, or take any drugs that were not prescribed by your health care provider for at least 24 hours after your discharge time. For Pediatric surgeries, we recommend two adults accompany the child home. Follow any additional instructions given to you from your surgeon. If you or anyone in your household have experienced Covid symptoms in the past week, please notify your surgeon or the nurse liaison at the phone number below for possible testing. Telephone instructions given to ___PATIENT and asked if any additional questions and then verbalized understanding. Patient advised to call surgeon office or pre surgery nurse liaison [phone] if any additional questions.
[2023-01-13 13:27] VITALS: BMI 21.4
[2023-01-14] VITALS (8 sets, daily range): BP systolic 101–110; BP diastolic 54–70; PULSE 65–109; RESP 14–18; TEMP 35.9–36.9; O2SAT 100
--- NOTE | ~2023-01-14 | XR_ITS ---
EXAMINATION: XR retrograde pyelo w/stent LT DATE: 01/14/2023 13:11 INDICATION: Left internal ureteral stent placement TECHNIQUE: Fluoroscopic images from a left internal ureteral stent placement are submitted for review . 23 seconds of fluoroscopy time. FINDINGS: There is a left double-J internal ureteral stent projecting in expected position, with proximal [place] loop at the level of the renal pelvis and distal loop in the pelvis within the bladder lumen. IMPRESSION: 1. Left internal ureteral stent placement. Please refer to real-time procedural findings for detail s. Reviewed, dictated and finalized at location B. IMPRESSION: 1. Left internal ureteral stent placement. Please refer to real-time procedur al findings for details.
[2023-01-14 09:54] LABS: Appearance Urine Cloudy (Clear); Bacteria Urine None Seen /hpf; Bilirubin Urine Negative (Negative); Blood Urine 3+ (Negative); Color Urine Dark Yellow (Yellow); Glucose Urine UA Negative (Negative); Hyaline Casts Urine Present /lpf; Ketones Urine Negative (Negative); Leukocyte Esterase Ur 2+ LEU/UL (Negative); Nitrate Urine Negative (Negative); Protein Urine 2+ mg/dL (Negative); RBC Urine >100 /hpf (0-2); Specific Grav Ur 1.016 (1.001-1.035); Squamous Epithelial Cell Urine Occasional /hpf (Few); WBC Urine 21-50 /hpf; pH Urine 5.5 (5.0-9.0)
[2023-01-14 09:57] LABS: Add Urine Microscopic? YES
[2023-01-14] MEDS: LACTATED RINGERS 1,000 ML 30 ML IV CONT ×2 (09:59→13:08)
--- NOTE | 2023-01-14 10:15 | ECG_ITS ---
Measurements Intervals [place] Rate: 69 P: 71 WA: 158 QRS: 70 QRSD: 76 T: 57 QT: 389 QTc: 418 Interpretive Statements SINUS RHYTHM FREQUENT ATRIAL PREMATURE COMPLEXES BASELINE ARTIFACT- I, II, III, AVR, AVL, AVF ABNORMAL ECG COMPARED TO ECG 01/06/2022 11:47:07 ATRIAL PREMATURE COMPLEXES NOW PRESENT Electronically Signed On 01-14-2023 12:29:08 CDT by Luis Armando Eng D.O.
--- NOTE | 2023-01-14 10:53 | WPDHPUPDATE1 ---
History and Physical Update Update Date/Time: 01/14/23 10:53 History and Physical has been reviewed, including an updated exam of the patient. There are NO changes in the patient's condition. Risks, benefits, and alternatives have been discussed and questions answered. Patient agrees to proceed with procedure. Proceed with cysto, left retrograde, left stent exchange.
--- NOTE | 2023-01-14 11:42 | WPDANESEPPF ---
Anes - Initial Pre Proc Eval Procedure: Operation Date: 01/14/23 11:00 Proposed Procedures p Cystoscopy, Left Retrograde Pyelogram, Left Stent Exchange, Possible Left Ureteroscopy - Bill Marsh MD Date/Time: 01/14/23 11:42 Surgeon: Bill Marsh MD Pre Op Diagnosis: left hydronephrosis Patient Data Age: 72 Gender: M Height: 1.83 m Weight: 69.9 kg Last Vital Signs Temp 35.9 C L 01/14/23 09:53 Pulse 109 H 01/14/23 09:53 Resp 18 01/14/23 09:53 BP 110/70 01/14/23 09:53 Pulse Ox 100 01/14/23 09:53 O2 Del Method Room Air 01/14/23 09:53 Allergies Allergy/AdvReac Type Severity Reaction Status Date / Time chicken derived Allergy Mild Gastrointestinal Verified 01/13/23 13:08 Upset soybean AdvReac Mild Gastrointestinal Verified 01/13/23 13:07 Upset EGG WHITES AdvReac Mild Gastrointestinal Uncoded 01/13/23 13:07 Upset Home Medications Medication Instructions Recorded Confirmed Type ascorbic acid (vitamin C) 1,000 mg 1 g PO DAILY 05/21/20 01/13/23 History tablet (Vitamin C) cholecalciferol (vitamin D3) 25 25 mcg PO DAILY 05/21/20 01/13/23 History mcg (1,000 unit) tablet cyanocobalamin (vitamin B-12) 1,000 mcg PO DAILY 05/21/20 01/13/23 History 1,000 mcg capsule [id number] 1 tablet PO DAILY 05/21/20 01/13/23 History 18 mg-10 mg-45 mg-5 mg-250 mg tablet (B Complex w-Vit C) omega-3 fatty acids-vitamin E 1 cap PO DAILY 01/05/22 01/13/23 History 1,000 mg capsule zinc 50 mg tablet 50 mg PO DAILY 01/05/22 01/13/23 History fluticasone fur. 100 mcg-umeclid 1 ea inhalation DAILY 03/31/22 01/13/23 History 62.5 mcg-vilant 25 mcg inhalat.powder (Trelegy Ellipta) methimazole 10 mg tablet 10 mg PO DAILY 90 days #90 tabs 09/29/22 01/13/23 Rx enzalutamide 40 mg tablet (Xtandi) 160 mg PO DAILY 01/13/23 01/13/23 History Laboratory Tests 01/14/23 09:27 Urine Color Dark yellow (Yellow) Urine Appearance Cloudy H (Clear) Urine pH 5.5 (5.0-9.0) Ur Specific [place] 1.016 (1.001-1.035) Urine Protein 2+ H mg/dL (Negative) Urine Glucose (UA) Negative mg/dL (Negative) Urine Ketones Negative mg/dL (Negative) Ur Blood (Man) 3+ H (Negative) Urine Nitrate Negative (Negative) Urine Bilirubin Negative (Negative) Urine Urobilinogen 1.0 mg/dL (<2.0) Leukocyte Esterase Rfl 2+ H LIAN/UL (Negative) Urine RBC >100 H /hpf (0-2) Urine WBC 21-50 H /hpf Ur Squamous Epith Cells Occasional /hpf (Few) Urine Bacteria None seen /hpf Urine Casts 6-10 Hyaline Casts Present /lpf (None) Patient hx anesthesia problems: none Family hx anesthesia problems: none Results Review: All pre-operative results and documents have been reviewed as part of the pre-operative evaluation. [facility] Past Medical History Medical History Cataract (lens) fragments in eye following cataract surgery, bilateral COPD (chronic obstructive pulmonary disease) Diabetes type 2, controlled diet controlled Hepatitis History of hepatitis History of lung cancer History of prostate cancer Kidney stone Renal dysfunction partially functioning left kidney Surgical History Surgical History Hx of tonsillectomy Social History Social History Smoking packs per day: 2 Smoking cigarettes per day: 40.0 Years smoked: 51 Smoking pack-years: 102.00 Smoking status: Former smoker Tobacco type: cigarettes Second hand tobacco smoke exposure: No Smoking end date: 03/21/22 Additional smoking assessment comments: STATES 2011 -2021 SMOKED 1PK/DAY Alcohol intake: former Alcohol use details: 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 DRINKER Substance use: never Substance use type: does not use Living arrangements: [place]
[2023-01-14] MEDS: ceFAZolin 2 GM/D5W 50 ML 2 GM/50 ML BAG IVPB (12:36)
[2023-01-14] MEDS: LIDOCAINE HCL 2% GEL UROJET 10 ML PKG MUCOUS MEM (13:03)
--- NOTE | 2023-01-14 13:05 | W.PM.PROC2 ---
Procedure Note - Detailed Date of Procedure 01/14/23 Pre-op Diagnosis left hydronephrosis Post-op Diagnosis Same Procedure Performed Cystoscopy, left retrograde pyelogram, left stent exchange 4.8 Croatian contour Surgeon Bill Marsh MD Anesthesia General Description of Procedure Patient is taken the operative suite correctly identified. Once anesthesia was obtained he was placed in dorsal lithotomy position and prepped and draped usual sterile fashion. Twenty-two Croatian scope was inserted the bladder. The left ureteral stent had been calcified but was retrieved brought out the meatus. A Sensor wire was passed through it. The 4.8 Croatian contour stent was then placed with the proximal in the renal pelvis distal in the bladder. Patient is taken recovery stable condition. Will simply plan on stent removal in 9 months or so. Please send a copy of op note to my office Estimated Blood Loss 0 Drains Yes Packing No Pathology None sent Complications No immediate complications Condition Stable Disposition PACU
== END 2023-01-14 14:57 | disposition home or self-care (01) ==
PROVIDERS: PCP Physician Assistant Medical; Visit Provider Urology
PROC: (CPT 52352; principal; 2023-01-14 11:00)
DX: N13.30 Unspecified hydronephrosis (principal); Z85.46 Personal history of malignant neoplasm of prostate
CPT/HCPCS: 52332; 74420; 81001; 87086; 93005; C1758; C1769; C2617; J0690; J2405; J2704; J3010; J7120